=== PATIENT | female | born 1965 | race Caucasian/White ===

== ENCOUNTER 2022-02-16 20:40 | Inpatient (IN) ==
[2022-02-16 21:58] LABS: Basophils # 0.1 K/mcL (0.0-0.2); Basophils % 1.2 %; Eosinophils # 0.2 K/mcL (0.0-0.6); Eosinophils % 2.7 %; Hematocrit 41.8 % (35.3-44.9); Hemoglobin 14.2 g/dL (11.5-15.4); Immature Granulocytes % 0.6 % (0-4); Lymphocytes # 0.5 K/mcL (0.6-4.6); Mean Corpuscular Hemoglobin 31.8 pg (28.0-33.3); Mean Corpuscular Volume 93.5 fL (83.0-100.0); Monocytes # 0.8 K/mcL (0.0-1.3); Monocytes % 9.3 %; Neutrophils # 7.3 K/mcL (1.6-8.9); Platelet Count 232 K/mcL (140-400); Red Blood Count 4.47 M/mcL (3.82-4.97); Red Cell Distribution Width 12.8 % (11.5-14.5); Segmented Neutrophils % 80.2 %; White Blood Count 9.1 K/mcL (4.3-11.1)
[2022-02-16] MEDS ORDERED: Isovue-370 500 ML BOTTLE IVP ONE (22:09)
[2022-02-16 22:20] LABS: BUN/Creatinine Ratio 11 (6-26); Blood Urea Nitrogen 8 mg/dL (6-20); Calcium 8.6 mg/dL (8.6-10.3); Carbon Dioxide 23 mEq/L (23-29); Chloride 95 mEq/L (98-107); Glucose 118 mg/dL (70-105); Lipase 12 Units/L (11-82); Osmolality,Calculated 267 (280-300); Potassium 3.6 mEq/L (3.5-5.1); Sodium 129 mEq/L (136-145); eGFR For African Americans > 60 (> 60); eGFR For Non-African Americans > 60 (> 60)
[2022-02-16 22:21] LABS: Troponin I < 0.03 ng/mL (< 0.04)
[2022-02-16] MEDS ORDERED: Magnesium Oxide 400 MG TABLET PO ONE (23:28)
[2022-02-16] MEDS ORDERED: Aspirin 325 MG TABLET PO ONE (23:28)
[2022-02-17] MEDS ORDERED: Ondansetron 4 MG/2 ML VIAL IVP PRN (00:27)
[2022-02-17] MEDS ORDERED: Naloxone 0.4 MG/ML INJ IVP PRN (00:27)
[2022-02-17] MEDS ORDERED: Perflutren Lipid Microsphere 1.3 ML in 0.9 % Sodium Chloride 8.7 ML IVP PRN (00:30)
[2022-02-17 00:34] LABS: Magnesium 1.4 mg/dL (1.6-2.6)
[2022-02-17] MEDS ORDERED: Ipratropium/Albuterol Neb 3 ML IH PRN (01:06)
[2022-02-17 03:16] LABS: Adenovirus Not Detected (Not Detect); Coronavirus 229E Not Detected (Not Detect); Coronavirus HKU1 Not Detected (Not Detect); Coronavirus NL63 Not Detected (Not Detect); Coronavirus OC43 Not Detected (Not Detect); Human Metapneumovirus Not Detected (Not Detect); Human Rhinovirus/Enterovirus Not Detected (Not Detect); SARS-CoV-2 Not Detected (Not Detect)
[2022-02-17 03:22] LABS: Bordetella Pertussis Not Detected (Not Detect); Chlamydophila pneumoniae Not Detected (Not Detect); Influenza A Subtype 2009 H1 Not Detected (Not Detect); Influenza B Not Detected (Not Detect); Mycoplasma pneumoniae Not Detected (Not Detect); Parainfluenza Virus 1 Not Detected (Not Detect); Parainfluenza Virus 2 Not Detected (Not Detect); Parainfluenza Virus 3 Not Detected (Not Detect); Parainfluenza Virus 4 Not Detected (Not Detect); Respiratory Syncytial Virus Not Detected (Not Detect)
[2022-02-17] MEDS ORDERED: Magnesium Sulfate 1 GM/102 ML PIGGYBACK IVPB ONE (03:23)
[2022-02-17 04:39] LABS: Basophils # 0.1 K/mcL (0.0-0.2); Basophils % 1.9 %; Eosinophils # 0.1 K/mcL (0.0-0.6); Eosinophils % 2.2 %; Hematocrit 42.4 % (35.3-44.9); Hemoglobin 14.4 g/dL (11.5-15.4); Immature Granulocytes % 0.9 % (0-4); Lymphocytes # 0.7 K/mcL (0.6-4.6); Lymphocytes % 15.7 %; Mean Corpuscular Hemoglobin 31.9 pg (28.0-33.3); Mean Platelet Volume 9.7 fL (9.4-12.4); Monocytes # 0.5 K/mcL (0.0-1.3); Monocytes % 10.1 %; Neutrophils # 3.2 K/mcL (1.6-8.9); Platelet Count 201 K/mcL (140-400); Red Blood Count 4.51 M/mcL (3.82-4.97); Red Cell Distribution Width 12.9 % (11.5-14.5); Segmented Neutrophils % 69.2 %; White Blood Count 4.6 K/mcL (4.3-11.1)
[2022-02-17 04:54] LABS: INR 1.1; Prothrombin Time 12.8 Seconds (9.4-12.1)
[2022-02-17 05:51] LABS: Bilirubin,Urine Negative (Negative); Blood,Urine Negative (Negative); Clarity,Urine Clear (Clear); Color,Urine Colorless (Yellow); Glucose,Urine (UA) Normal (Normal); Ketones,Urine Negative (Negative); Leukocyte Esterase,Urine Negative (Negative); Nitrite,Urine Negative (Negative); Protein,Urine Negative (Neg-Trace); Specific Gravity,Urine 1.011 (1.010-1.025); Urobilinogen,Urine Normal (Normal)
[2022-02-17 05:52] LABS: Folate 7.2 ng/mL (3.0-16.0)
[2022-02-17 05:55] LABS: Alanine Aminotransferase 20 Units/L (7-52); Albumin 3.8 g/dL (3.5-5.7); Albumin/Globulin Ratio 1.3 (1.1-2.2); Alkaline Phosphatase 177 Units/L (34-104); Aspartate Amino Transferase 19 Units/L (13-39); BUN/Creatinine Ratio 10 (6-26); Bilirubin,Indirect 0.3 mg/dL (0.0-1.0); Bilirubin,Total 0.3 mg/dL (0.3-1.0); Blood Urea Nitrogen 9 mg/dL (6-20); Calcium 9.2 mg/dL (8.6-10.3); Carbon Dioxide 25 mEq/L (23-29); Chloride 99 mEq/L (98-107); Chol/HDL Ratio 3.1 (0-4.9); Cholesterol 159 mg/dL (< 200); Glucose 93 mg/dL (70-105); HDL Cholesterol 52 mg/dL (40-59); LDL Cholesterol,Calculated 89 mg/dL (< 100); Osmolality,Calculated 282 (280-300); Phosphorous 4.2 mg/dL (2.7-4.5); Potassium 3.7 mEq/L (3.5-5.1); Sodium 137 mEq/L (136-145); Total Protein 6.8 g/dL (6.4-8.9); Triglycerides 89 mg/dL (< 150); eGFR For African Americans > 60 (> 60); eGFR For Non-African Americans > 60 (> 60)
[2022-02-17] MEDS ORDERED: Regadenoson 0.4 MG/5 ML SYRINGE IVP ONE (06:05)
[2022-02-17 06:13] LABS: Troponin I < 0.03 ng/mL (< 0.04)
[2022-02-17] MEDS: Acetaminophen 325 MG TABLET PO PRN (06:59)
[2022-02-17 08:06] LABS: Magnesium 1.8 mg/dL (1.6-2.6)
[2022-02-17 09:23] LABS: Estimated Average Glucose 108 mg/dl; Hemoglobin A1C 5.4 %
[2022-02-17] MEDS: 0.9 % Sodium Chloride 1,000 ML IVC SCH (09:28)
[2022-02-17] MEDS: *HR* Enoxaparin 40 MG/0.4 ML SYRINGE SQ SCH (09:29)
[2022-02-17] MEDS: Aspirin 81 MG TAB.CHEW PO SCH (09:30)
[2022-02-17] MEDS: predniSONE 20 MG TABLET PO SCH (09:30)
[2022-02-17] MEDS: Azithromycin 500 MG in 0.9 % Sodium Chloride 250 ML IVPB SCH (09:31)
[2022-02-17 09:46] LABS: Amphetamine Screen,Urine Negative ng/mL (Cutoff=1000); Barbiturate Screen,Urine Negative ng/mL (Cutoff=200); Benzodiazepines Screen,Urine Negative ng/mL (Cutoff=200); Cannabinoid Screen,Urine Negative ng/mL (Cutoff = 50); Cocaine Screen,Urine Negative ng/mL (Cutoff= 300); Opiate Screen,Urine Negative ng/mL (Cutoff=300); Phencyclidine Screen,Urine Negative ng/mL (Cutoff=25)
[2022-02-17] MEDS: Ipratropium/Albuterol Neb 3 ML IH SCH ×3 (11:23→19:55)
[2022-02-17] MEDS ORDERED: methocarbamoL 750 MG TABLET PO PRN (21:42)
[2022-02-17] MEDS ORDERED: Venlafaxine XR (24 HR) 37.5 MG CAP.ER.24H PO SCH (21:45)
[2022-02-17] MEDS ORDERED: OXcarbazepine 150 MG TABLET PO SCH (21:45)
[2022-02-17] MEDS ORDERED: lamoTRIgine 100 MG TABLET PO SCH (21:45)
[2022-02-18] MEDS: Ipratropium/Albuterol Neb 3 ML IH SCH ×5 (00:04→16:31)
[2022-02-18] MEDS ORDERED: GuaiFENesin Liq 200 MG/10 ML UDC PO PRN (02:07)
[2022-02-18] MEDS: 0.9 % Sodium Chloride 1,000 ML IVC SCH ×2 (06:29→09:15)
[2022-02-18] MEDS ORDERED: hydrOXYzine pamoate 25 MG CAPSULE PO PRN (08:17)
[2022-02-18] MEDS: Azithromycin 500 MG in 0.9 % Sodium Chloride 250 ML IVPB SCH (09:18)
[2022-02-18] MEDS: Aspirin 81 MG TAB.CHEW PO SCH (09:19)
[2022-02-18] MEDS: *HR* Enoxaparin 40 MG/0.4 ML SYRINGE SQ SCH (09:20)
[2022-02-18] MEDS: predniSONE 20 MG TABLET PO SCH (09:20)
[2022-02-18] MEDS: Acetaminophen 325 MG TABLET PO PRN (09:24)
[2022-02-18] MEDS ORDERED: Budesonide/Formoterol 160/4.5 1 PUFF INH IH SCH (10:00)
[2022-02-18 11:17] LABS: ABG Base Excess 0 mEq/L (-2 to 3); ABG HCO3 26 mEq/L (21-27); ABG Oxygen Saturation 92 % (95-98); ABG PCO2 42 mmHg (35-45); ABG PH 7.39 pH Units (7.32-7.45); ABG PO2 65 mmHg (85-104); ABG TCO2 27 mEq/L (20-26)
[2022-02-18 14:57] VITALS: BP 127/80; PULSE 93; TEMP 98.2
[2022-02-18 17:42] VITALS: O2SAT 98
== END 2022-02-18 19:15 | disposition home or self-care (01) | DRG 189 ==
LOC: 3BNU 20:40 → EMEROOARM 20:40 → SUATTDRO 23:51 → 3BNU 02-17 00:35
PROVIDERS: ADMIT Internal Medicine; ATTEND Internal Medicine